=== PATIENT | male | born 1970 | race African-American/Black ===

== ENCOUNTER 2019-01-26 16:57 | Inpatient (IN) | payer OTHER ==
--- NOTE | 2019-01-26 17:13 | ER Document Report ---
ED General - General TRAVEL OUTSIDE OF THE [place] IN LAST 30 DAYS: No <EDEL TODD - Last Filed: 01/26/19 20:08> <ZACKERY BROWN - Last Filed: 01/27/19 15:20> - General Stated Complaint: CHEST PAIN Time Seen by Provider: 01/26/19 17:03 - HPI Notes: Patient is a 48-year-old male with a history of hypertension (not currently on medication x3mos) who presents the emergency department complaining of dyspnea on exertion, shortness of breath, dry cough, chest pain that began 3-4 days ago. Patient states that his symptoms worsen when he lays flat or when he is going upstairs. He has never had anything like this before. He still able to eat and drink without difficulty. He is urinating normally and having normal bowel movements. Denies drug allergies. Patient does admit to smoking cigarettes. No significant cardiopulmonary medical history otherwise. Denies any prolonged immobilization, distance travel, recent surgery/trauma, personal cancer history, hormone use, or previous DVT/PE. Denies any headache, fever, neck pain, URI, sore throat, syncope, abdominal pain, nausea/vomiting/diarrhea, urinary retention, dysuria, hematuria, loss of control of bowel or bladder, numbness/ tingling, saddle anesthesia, muscle paralysis/weakness, or rash. (EDEL TODD) - Related Data Allergies/Adverse Reactions: No Known Allergies Allergy (Unverified 05/29/16 10:26) Past Medical History - Social History Smoking Status: Current Every Day Smoker Family History: Reviewed & Not Pertinent - Past Medical History Cardiac Medical History: Reports: Hx Hypertension - Immunizations Hx Diphtheria, Pertussis, Tetanus Vaccination: No <EDEL TODD - Last Filed: 01/26/19 20:08> Review of Systems - Review of Systems -: Yes All other systems reviewed and negative <EDEL TODD - Last Filed: 01/26/19 20:08> Physical Exam <EDEL TODD - Last Filed: 01/26/19 20:08> - Vital signs Vitals: Resp BP Pulse Ox 14 152/121 H 92 01/26/19 17:09 01/26/19 17:09 01/26/19 17:09 - Notes Notes: PHYSICAL EXAMINATION: GENERAL: Well-appearing, well-nourished and in mild resp distress. HEAD: Atraumatic, normocephalic. EYES: Pupils equal round and reactive to light, extraocular movements intact, sclera anicteric, conjunctiva are normal. ENT: Nares patent and without discharge. oropharynx clear without exudates. No tonsilar hypertrophy or erythema. Moist mucous membranes. NECK: Normal range of motion, supple without lymphadenopathy LUNGS: diminished at bases b/l. HEART: Regular rate and rhythm without murmurs, rubs, gallops. ABDOMEN: Soft, nontender, nondistended abdomen. No guarding, no rebound. No masses appreciated. Normal bowel sounds present. No CVA tenderness bilaterally. Musculoskeletal: FROM to passive/active. Strength 5+/5. Ayaka neg. No asymmetry to LE's. Extremities: No cyanosis, clubbing, or edema b/l. Peripheral pulses 2+. Capillary refill less than 3 seconds. NEUROLOGICAL: Normal speech, normal gait. PSYCH: Normal mood, normal affect. SKIN: Warm, Dry, normal turgor, no rashes or lesions noted. (EDEL TODD) Course - Laboratory Result Diagrams: 01/26/19 17:30 01/26/19 17:30 <EDEL TODD - Last Filed: 01/26/19 20:08> - Laboratory Result Diagrams: 01/27/19 06:48 01/27/19 06:48 - Diagnostic Test Radiology reviewed: Image reviewed, Reports reviewed <ZACKERY BROWN - Last Filed: 01/27/19 15:20> - Re-evaluation Re-evalutation: 01/26/19 17:12 Upon my initial evaluation I noticed the patient to be hypoxic anywhere from 90- 93% on room air, tachypneic in the high 20s, tachycardic around 110, dry cough, and him expressing trouble breathing. Oxygen placed via nasal cannula. CTA will be ordered for further evaluation and the rest of the blood work will be obtained when he returns as I have concern for possible PE. 01/26/19 17:50 Radiology called and stated that his blood must have diluted the contrast. He saw a right pleural effusion with ?consolidation in the RUL, RLL, and LLL. He would like a repeat CTA for further evaluation if his renal function is appropriate. 01/26/19 19:42 Patient is an afebrile, well-hydrated, 48-year-old male who presents the emergency department with acute respiratory failure with bilateral pulm edema and effusions and HTN urgency. Patient has remained tachycardic, tachypneic and intermittently hypoxic on 3 L via nasal cannula. CBC, CMP, BNP, cardiac enzymes otherwise unremarkable. I did review with Dr. Brown who agrees with placing on Bipap and admitting to the hospitalist. VBG is still being obtained otherwise. 01/26/19 20:[address] Vanessa who accepted pt to [facility]. (EDEL TODD) 01/27/19 15:18 Patient was evaluated as requested by [facility]. Patient is a 48-year-old male who is noncompliant with his blood pressure medication who presents with hypertensive urgency, shortness of breath and is found to have pleural effusion and vascular congestion. Patient does smoke cigarettes and sister reveals has used crack cocaine recently. Patient is visibly dyspneic, hypoxic and I recommended to [facility] that the patient should be placed on BiPAP. Patient will be admitted to the [facility] PHYSICAL EXAMINATION: GENERAL: Morbidly obese, moderate respiratory distress HEAD: Atraumatic, normocephalic. EYES: Pupils equal round extraocular movements intact, conjunctiva are normal. ENT: Nares patent NECK: Normal range of motion LUNGS: Diminished breath sounds in the lower lung unger. Patient is visibly dyspneic, hypoxic on 4 L of nasal cannula. Musculoskeletal: Normal range of motion NEUROLOGICAL: Normal speech, normal gait. PSYCH: Normal mood, normal affect. SKIN: Warm, Dry, normal turgor, no rashes or lesions noted. (ZACKERY BROWN) - Vital Signs Vital signs: Temp Pulse Resp BP Pulse Ox 97.7 F 99 32 H 122/81 94 01/27/19 11:29 01/27/19 11:29 01/27/19 11:29 01/27/19 11:29 01/27/19 11:29 - Laboratory Laboratory results interpreted by me: 01/26/19 01/26/19 01/26/19 17:30 17:30 17:30 RBC 5.56 H RDW 14.6 H Chloride 108 H AST 15 L Creatine Kinase 189 H NT-Pro-B Natriuret Pep 321 H Urine Protein Urine Urobilinogen 01/26/19 20:00 RBC RDW Chloride AST Creatine Kinase NT-Pro-B Natriuret Pep Urine Protein 30 H Urine Urobilinogen 2.0 H Discharge - Discharge Admitting Provider: Rasheeda (Hospitalist) Unit Admitted: I[facility] <EDEL TODD - Last Filed: 01/26/19 20:08> <ZACKERY BROWN - Last Filed: 01/27/19 15:20> - Discharge Clinical Impression: Hypertensive urgency Acute respiratory failure Qualifiers: Respiratory failure complication: hypoxia Qualified Code(s): J96.01 - Acute respiratory failure with hypoxia Condition: Stable Disposition: ADMITTED INPATIENT
[2019-01-26] MEDS ORDERED: CLONIDINE HCL 0.1 MG TABLET PO ONE ×2 (17:17→20:00)
[2019-01-26] MEDS ORDERED: LORAZEPAM INJ 2 MG/1 ML VIAL IV ONE ×2 (17:18→19:45)
[2019-01-26 17:43] LABS: ABSOLUTE EOSINOPHILS # (AUTO) 0.1 10^3/uL (0.0-0.6); ABSOLUTE LYMPHOCYTES (AUTO) 2.3 10^3/uL (0.5-4.7); ABSOLUTE MONOCYTES (AUTO) 0.5 10^3/uL (0.1-1.4); ABSOLUTE NEUT (AUTO) 4.8 10^3/uL (1.7-8.2); BASOPHILS % (AUTO) 0.4 % (0-2); EOSINOPHILS % (AUTO) 1.7 % (0-6); HEMATOCRIT 47.3 % (37.9-51.0); HEMOGLOBIN 15.8 g/dL (13.5-17.0); LYMPHOCYTES % (AUTO) 29.7 % (13-45); MEAN CORPUSCULAR HEMOGLOBIN 28.4 pg (27.0-33.4); MEAN CORPUSCULAR HGB CONC 33.3 g/dL (32.0-36.0); MEAN CORPUSCULAR VOLUME 85 fl (80-97); MONOCYTES % (AUTO) 6.2 % (3-13); PLATELET COUNT 228 10^3/uL (150-450); RED BLOOD COUNT 5.56 10^6/uL (4.35-5.55); RED CELL DISTRIBUTION WIDTH 14.6 % (11.5-14.0); TOTAL CELLS COUNTED % (AUTO) 100 %; WHITE BLOOD COUNT 7.8 10^3/uL (4.0-10.5)
[2019-01-26 17:55] LABS: ALANINE AMINOTRANSFERASE 28 U/L (21-72); ALBUMIN 3.9 g/dL (3.5-5.0); ALKALINE PHOSPHATASE 75 U/L (38-126); ANION GAP 7 (5-19); ASPARTATE AMINO TRANSFERASE 15 U/L (17-59); BILIRUBIN,DIRECT 0.2 mg/dL (0.0-0.4); BILIRUBIN,TOTAL 0.3 mg/dL (0.2-1.3); BLOOD UREA NITROGEN 14 mg/dL (7-20); CALCIUM 9.4 mg/dL (8.4-10.2); CARBON DIOXIDE 26 mmol/L (22-30); CHLORIDE 108 mmol/L (98-107); CREATINE KINASE 189 U/L (55-170); GLUCOSE 101 mg/dL (75-110); SODIUM 140.6 mmol/L (137-145); TOTAL PROTEIN 6.8 g/dL (6.3-8.2)
[2019-01-26] MEDS ORDERED: NORMAL SALINE 1000 ML 1,000 ML IV ONE (18:04)
[2019-01-26 18:06] LABS: CREATINE KINASE MB 1.06 ng/mL (<4.55)
[2019-01-26 18:08] LABS: TROPONIN I < 0.012 ng/mL
--- NOTE | 2019-01-26 19:29 | RADIOLOGY REPORT (SQ) ---
EXAM DESCRIPTION: CTA CHEST COMPLETED DATE/TIME: 01/26/2019 7:06 pm REASON FOR STUDY: tachypneic, tachycardic, hypoxic, sob, cp; repeat CTA COMPARISON: None. TECHNIQUE: CT scan of the chest performed using helical scanning technique with dynamic intravenous contrast injection. Images reviewed with lung, soft tissue and bone windows. Reconstructed coronal and sagittal MPR images reviewed. Additional 3 dimensional post-processing performed to develop Maximal Intensity Projection images (PA P) through the pulmonary arteries and thoracic aorta. All images stored on PACS. Please note that the patient was scanned twice, full protocol was performed 01/26/2019 at 1735 hours a nd repeated at 01/26/2019 1858 hours with repeat contrast bolus. All CT scanners at this facility use dose modulation, iterative reconstruction, and/or weight based d osing when appropriate to reduce radiation dose to as low as reasonably achievable (ALARA). [facility]: Dose Right [facility]: CareDose [facility]: Dose Right [facility]: Teradose 4D [facility]: Lingohub CONTRAST TYPE AND DOSE: 75 mL of Omnipaque [address] scan 1735 hours. 90 mL of Omnipaque [address] scan at 1858 hours Contrast bolus optimized for the pulmonary arteries and thoracic aorta on the 2nd scan. RENAL FUNCTION: Creatinine RADIATION DOSE: CT Rad equipment meets quality standard of care and radiation dose reduction techniq ues were employed. CTDIvol: 36.8 - 41.3 mGy. DLP: 1446 mGy-cm.; CT Rad equipment meets quality standa rd of care and radiation dose reduction techniques were employed. CTDIvol: 33.1 - 39.4 mGy. DLP: 1497 mGy-cm. . LIMITATIONS: None. FINDINGS: LUNGS AND PLEURA: There is diffuse bilateral pulmonary edema with ground-glass opacities r ight greater than left. Small right, trace left pleural effusion. No pneumothorax. No worrisome pu lmonary nodules AORTA AND GREAT VESSELS: No aneurysm or thoracic aortic dissection. HEART: No pericardial effusion. No significant coronary artery calcifications. PULMONARY ARTERIES: No emboli visualized in the main pulmonary arteries or the segmental branches. HILAR AND MEDIASTINAL STRUCTURES: No identified masses or abnormal nodes. HARDWARE: None in the chest. UPPER ABDOMEN: 1 cm left midpole renal cortical cyst THYROID AND OTHER SOFT TISSUES: No masses. No adenopathy. BONES: No acute or significant finding. 3D MIPS: Confirm above findings. OTHER: No other significant finding. IMPRESSION: Bilateral pulmonary edema pattern right greater than left. Small right pleural effusion, trace left pleural effusion No CT angio evidence of acute pulmonary emboli or thoracic aortic dissection. No pericardial effusio n. COMMENT: Quality ID # [id number]: Final reports with documentation of one or more dose reduction techniques (e.g., Automated exposure control, adjustment of the mA and/or kV according to patient size, use of iterative reconstruction technique) TECHNICAL DOCUMENTATION: JOB ID: [id number] [employer]- All Rights Reserved Reading location - IP/workstation name: [email or web address]
--- NOTE | 2019-01-26 19:29 | RADIOLOGY REPORT (SQ) ---
EXAM DESCRIPTION: CTA CHEST COMPLETED DATE/TIME: 01/26/2019 7:06 pm REASON FOR STUDY: tachypneic, tachycardic, hypoxic, sob, cp; repeat CTA COMPARISON: None. TECHNIQUE: CT scan of the chest performed using helical scanning technique with dynamic intravenous contrast injection. Images reviewed with lung, soft tissue and bone windows. Reconstructed coronal and sagittal MPR images reviewed. Additional 3 dimensional post-processing performed to develop Maximal Intensity Projection images (DE P) through the pulmonary arteries and thoracic aorta. All images stored on PACS. Please note that the patient was scanned twice, full protocol was performed 01/26/2019 at 1735 hours a nd repeated at 01/26/2019 1858 hours with repeat contrast bolus. All CT scanners at this facility use dose modulation, iterative reconstruction, and/or weight based d osing when appropriate to reduce radiation dose to as low as reasonably achievable (ALARA). [facility]: Dose Right [facility]: CareDose [facility]: Dose Right [facility]: Teradose 4D [facility]: [email or web address] CONTRAST TYPE AND DOSE: 75 mL of Omnipaque [address] scan 1735 hours. 90 mL of Omnipaque [address] scan at 1858 hours Contrast bolus optimized for the pulmonary arteries and thoracic aorta on the 2nd scan. RENAL FUNCTION: Creatinine RADIATION DOSE: CT Rad equipment meets quality standard of care and radiation dose reduction techniq ues were employed. CTDIvol: 36.8 - 41.3 mGy. DLP: 1446 mGy-cm.; CT Rad equipment meets quality standa rd of care and radiation dose reduction techniques were employed. CTDIvol: 33.1 - 39.4 mGy. DLP: 1497 mGy-cm. . LIMITATIONS: None. FINDINGS: LUNGS AND PLEURA: There is diffuse bilateral pulmonary edema with ground-glass opacities r ight greater than left. Small right, trace left pleural effusion. No pneumothorax. No worrisome pu lmonary nodules AORTA AND GREAT VESSELS: No aneurysm or thoracic aortic dissection. HEART: No pericardial effusion. No significant coronary artery calcifications. PULMONARY ARTERIES: No emboli visualized in the main pulmonary arteries or the segmental branches. HILAR AND MEDIASTINAL STRUCTURES: No identified masses or abnormal nodes. HARDWARE: None in the chest. UPPER ABDOMEN: 1 cm left midpole renal cortical cyst THYROID AND OTHER SOFT TISSUES: No masses. No adenopathy. BONES: No acute or significant finding. 3D MIPS: Confirm above findings. OTHER: No other significant finding. IMPRESSION: Bilateral pulmonary edema pattern right greater than left. Small right pleural effusion, trace left pleural effusion No CT angio evidence of acute pulmonary emboli or thoracic aortic dissection. No pericardial effusio n. COMMENT: Quality ID # [id number]: Final reports with documentation of one or more dose reduction techniques (e.g., Automated exposure control, adjustment of the mA and/or kV according to patient size, use of iterative reconstruction technique) TECHNICAL DOCUMENTATION: JOB ID: [id number] [employer]- All Rights Reserved Reading location - IP/workstation name: [email or web address]
[2019-01-26] MEDS ORDERED: NITROGLYCERIN 5 MG (0.2 MG/HR) PATCH.TD24 TD ONE (19:35)
[2019-01-26] MEDS ORDERED: MORPHINE SULFATE 10 MG/ML INJ IV ONE ×2 (20:07→20:08)
[2019-01-26 20:13] LABS: VENOUS BLOOD BASE EXCESS -0.2 mmol/L; VENOUS BLOOD HCO3 24.6 mmol/L (20-32); VENOUS BLOOD PCO2 40.6 mmHg (35-63); VENOUS BLOOD PH 7.4 (7.30-7.42)
[2019-01-26 20:25] LABS: APPEARANCE,URINE CLEAR; BILIRUBIN,URINE NEGATIVE (NEGATIVE); COLOR,URINE YELLOW; GLUCOSE, URINE NEGATIVE (NEGATIVE); KETONES,URINE NEGATIVE (NEGATIVE); LEUKOCYTE ESTERASE,URINE NEGATIVE (NEGATIVE); NITRITE,URINE NEGATIVE (NEGATIVE); PROTEIN,URINE 30 mg/dL (NEGATIVE); URINE SPECIFIC GRAVITY 1.036
[2019-01-26 20:40] LABS: URINE AMPHETAMINES SCREEN NEGATIVE; URINE BARBITURATES SCREEN NEGATIVE; URINE BENZODIAZEPINES SCREEN NEGATIVE; URINE COCAINE SCREEN UNCONFIRMED POSITIVE; URINE MARIJUANA (THC) SCREEN NEGATIVE; URINE METHADONE SCREEN NEGATIVE; URINE PHENCYCLIDINE SCREEN NEGATIVE
--- NOTE | 2019-01-26 20:51 | EKG REPORT ---
SEVERITY:- ABNORMAL ECG - SINUS TACHYCARDIA PROBABLE LEFT ATRIAL ABNORMALITY LEFT VENTRICULAR HYPERTROPHY CONSIDER ANTERIOR INFARCT : Confirmed by: Janae Fontana MD 26-Jan-2019 20:50:37
[2019-01-26] MEDS ORDERED: ONDANSETRON HCL INJ/PF 4 MG/2 ML SDV IV PRN (21:09)
[2019-01-26] MEDS ORDERED: ONDANSETRON 4 MG TAB.RAPDIS PO PRN (21:09)
[2019-01-26] MEDS ORDERED: MAG HYDROX/AL HYDROX/SIMETH SUSP 30 ML UDCUP PO PRN (21:09)
[2019-01-26] MEDS ORDERED: MAGNESIUM HYDROXIDE SUSP 30 ML UDCUP PO PRN (21:09)
[2019-01-26] MEDS ORDERED: ACETAMINOPHEN 325 MG TABLET PO PRN (21:16)
[2019-01-26] MEDS ORDERED: NICOTINE 21 MG/24 HR PATCH.TD24 TD PRN (21:16)
[2019-01-26] MEDS ORDERED: MORPHINE SULFATE 10 MG/ML INJ IV PRN ×5 (21:16→21:43)
[2019-01-26] MEDS ORDERED: ALBUTEROL SULFATE 0.083% NEB 2.5 MG/3 ML AMPUL NEB PRN (21:16)
[2019-01-26] MEDS ORDERED: NITROGLYCERIN 2% OINTMENT 1 GM PACKET TP PRN (21:21)
[2019-01-26] MEDS: HEPARIN SOD (PORCINE) 5,000 UNIT/ML 1 ML SYRINGE SUBCUT SCH (23:10)
[2019-01-26] MEDS: METOPROLOL SUCCINATE 50 MG TAB.SR.24H PO SCH (23:11)
[2019-01-26] MEDS: FAMOTIDINE 20 MG TABLET PO SCH (23:12)
[2019-01-27 00:33] LABS: TROPONIN I < 0.012 ng/mL
--- NOTE | 2019-01-27 03:37 | PDOC H&P ---
History of Present Illness Admission Date/PCP: 01/26/19 20:17 Patient complains of: Dyspnea History of Present Illness: YAW KIM is a 48 year old male who presented to the emergency room with a 4-day history of progressively worsening dyspnea. He admits that over the 4 days prior to his admission he experienced gradually worsening dyspnea both on exertion and at rest. His dyspnea has become severe and has caused him to present to the emergency room. His dyspnea has been accompanied by gradually worsening associated symptoms of an intermittent nonproductive cough, orthopnea and mild to moderate generalized chest pain/discomfort. He denies prior similar episodes and has not identified any aggravating or ameliorating factors for his dyspnea. He admits to smoking cigarettes and has a history of hypertension but has not taken medications for the last 3 months. In the emergency room he was found to be significantly hypoxic requiring supplemental oxygen via nasal cannula. Additionally he was noted to have significant hypertension and his ch est x-ray revealed acute pulmonary edema with congestive heart failure. With these findings the patient was admitted to the [facility] for further evaluation and treatment. Past Medical History Cardiac Medical History: Reports: Hypertension Denies: Atrial Fibrillation, Congestive Heart Failure, Coronary Artery Disease, DVT, Myocardial Infarction, Pulmonary Embolism Pulmonary Medical History: Denies: Asthma, Chronic Obstructive Pulmonary Disease (COPD) EENT Medical History: Denies: Cataracts Neurological Medical History: Denies: Hemorrhagic CVA, Ischemic CVA, Seizures Endocrine Medical History: Reports: Obesity Denies: Diabetes Mellitus Type 1, Diabetes Mellitus Type 2, Hyperthyroidism, Hypothyroidism Renal/ Medical History: Denies: Chronic Kidney Disease, Nephrolithiasis Malignancy Medical History: Reports: None GI Medical History: Denies: Cirrhosis, Hepatitis Musculoskeltal Medical History: Denies: Arthritis, Gout Skin Medical History: Denies: Eczema, Psoriasis Psychiatric Medical History: Reports: Tobacco Dependency Denies: Alcohol Dependency, Substance Abuse Traumatic Medical History: Reports: None Hematology: Denies: Anemia, Bleeding Tendencies Infectious Medical History: Reports: None Social History Information Source: Patient Lives with: Parents - Mother Smoking Status: Current Every Day Smoker Frequency of Alcohol Use: None Hx Recreational Drug Use: Yes Drugs: Cocaine - Occasional usage, none recent, Marijuana - Rare usage Hx Prescription Drug Abuse: No - Advance Directive Resuscitation Status: Full Code Surrogate healthcare decision maker:: Mother Family History Family History: CAD, DM, Hypertension, Malignancy Parental Family History Reviewed: Yes Children Family History Reviewed: No Sibling(s) Family History Reviewed.: Yes Medication/Allergy Home Medications: Clonidine HCl [Catapres 0.3 mg Tablet] 0.3 mg PO TID 30 Days tablet 01/15/15 Metoprolol Tartrate [Lopressor 50 mg Tablet] 50 mg PO Q12H #60 tablet 01/15/15 Triamterene/Hydrochlorothiazid [Triamterene-Hctz 37.5-25 mg Tb] 1 each PO DAILY #60 tablet 01/15/15 Ibuprofen [Motrin 600 Mg Tablet] 600 mg PO TID #15 tablet 05/29/16 Oxycodone HCl/Acetaminophen [Percocet 5-325 mg Tablet] 1 - 2 tab PO Q4H PRN #25 tablet 05/29/16 Amlodipine Besylate [Norvasc 5 mg Tablet] 5 mg PO DAILY #30 tablet 09/14/16 Clonidine HCl [Catapres 0.3 mg Tablet] 0.3 mg PO TID #90 tablet 09/14/16 Metoprolol Tartrate [Lopressor 50 mg Tablet] 50 mg PO Q12H #60 tablet 09/14/16 Triamterene/Hydrochlorothiazid [Triamterene-Hctz 37.5-25 mg Tb] 1 each PO DAILY #30 tablet 09/14/16 Allergies/Adverse Reactions: No Known Allergies Allergy (Unverified 05/29/16 10:26) Review of Systems Constitutional: ABSENT: chills, fever(s) Eyes: ABSENT: visual disturbances, other - Eye pain Ears: ABSENT: hearing changes, other - Ear pain Nose, Mouth, and Throat: ABSENT: mouth pain, sore throat Cardiovascular: PRESENT: as per HPI, chest pain, dyspnea on exertion, orth ropnea. ABSENT: edema, palpitations Respiratory: PRESENT: cough, dyspnea. ABSENT: sputum Gastrointestinal: ABSENT: abdominal pain, constipation, diarrhea, nausea, vomiting Genitourinary: ABSENT: dysuria, hematuria Musculoskeletal: ABSENT: back pain, joint swelling, muscle weakness Integumentary: ABSENT: pruritus, rash Neurological: ABSENT: confusion, convulsions, focal weakness, memory loss, syncope Psychiatric: ABSENT: anxiety, depression Endocrine: ABSENT: cold intolerance, heat intolerance Hematologic/Lymphatic: ABSENT: easy bleeding, easy bruising Physical Exam Vital Signs: Temp Pulse Resp BP Pulse Ox 25 H 163/133 H 92 01/26/19 18:26 01/26/19 18:26 01/26/19 20:14 Intake & Output 01/24/19 01/25/19 01/26/19 23:59 23:59 23:59 Weight 129.274 kg General appearance: PRESENT: cooperative, mild distress - Secondary to mild dyspnea, morbidly obese Head exam: PRESENT: atraumatic, normocephalic Eye exam: ABSENT: conjunctival injection, nystagmus, scleral icterus Ear exam: PRESENT: normal external ear exam. ABSENT: bleeding, drainage Mouth exam: PRESENT: dry mucosa, neck supple Neck exam: PRESENT: JVD - Bilateral 45 degrees elevation. ABSENT: thyromegaly, tracheal deviation Respiratory exam: PRESENT: accessory muscle use - Mild, decreased breath sounds - Decreased breath sounds at bilateral bases with dullness on percussion, rales - Bilateral involving the lower one third of the chest, symmetrical, tachypnea Cardiovascular exam: PRESENT: RRR, tachycardia. ABSENT: clicks, gallop, rubs Pulses: PRESENT: normal radial pulses, normal dorsalis pedis pul Vascular exam: PRESENT: normal capillary refill. ABSENT: pallor GI/Abdominal exam: PRESENT: normal bowel sounds, soft. ABSENT: tenderness Rectal exam: PRESENT: deferred Extremities exam: PRESENT: pedal edema. ABSENT: joint swelling Musculoskeletal exam: ABSENT: deformity, dislocation Neurological exam: PRESENT: alert, oriented to person, oriented to place, oriented to time, oriented to situation, CN II-XII grossly intact. ABSENT: motor sensory deficit Psychiatric exam: PRESENT: appropriate affect, normal mood Skin exam: PRESENT: dry, intact, warm. ABSENT: jaundice, rash, urticaria Results Laboratory Results: 01/26/19 17:30 01/26/19 17:30 01/26/19 01/26/19 01/26/19 17:30 17:30 17:30 WBC 7.8 RBC 5.56 H Hgb 15.8 Hct 47.3 MCV 85 MCH 28.4 MCHC 33.3 RDW 14.6 H Plt Count 228 Seg Neutrophils % 62.0 Lymphocytes % 29.7 Monocytes % 6.2 Eosinophils % 1.7 Basophils % 0.4 Absolute Neutrophils 4.8 Absolute Lymphocytes 2.3 Absolute Monocytes 0.5 Absolute Eosinophils 0.1 Absolute Basophils 0.0 VBG pH VBG pCO2 VBG HCO3 VBG Base Excess Sodium 140.6 Potassium 4.0 Chloride 108 H Carbon Dioxide 26 Anion Gap 7 BUN 14 Creatinine 1.11 Est GFR ( Amer) > 60 Est GFR (Non-Af Amer) > 60 Glucose 101 Lactic Acid 1.4 Calcium 9.4 Total Bilirubin 0.3 AST 15 L ALT 28 Alkaline Phosphatase 75 Total Protein 6.8 Albumin 3.9 Urine Color Urine Appearance Urine pH Ur Specific [place] Urine Protein Urine Glucose (UA) Urine Ketones Urine Blood Urine Nitrite Ur Leukocyte Esterase Urine WBC (Auto) Urine RBC (Auto) 01/26/19 01/26/19 20:00 20:00 WBC RBC Hgb Hct MCV MCH MCHC RDW Plt Count Seg Neutrophils % Lymphocytes % Monocytes % Eosinophils % Basophils % Absolute Neutrophils Absolute Lymphocytes Absolute Monocytes Absolute Eosinophils Absolute Basophils VBG pH 7.40 VBG pCO2 40.6 VBG HCO3 24.6 VBG Base Excess -0.2 Sodium Potassium Chloride Carbon Dioxide Anion Gap BUN Creatinine Est GFR ( Amer) Est GFR (Non-Af Amer) Glucose Lactic Acid Calcium Total Bilirubin AST ALT Alkaline Phosphatase Total Protein Albumin Urine Color YELLOW Urine Appearance CLEAR Urine pH 7.0 Ur Specific [place] 1.036 Urine Protein 30 H Urine Glucose (UA) NEGATIVE Urine Ketones NEGATIVE Urine Blood NEGATIVE Urine Nitrite NEGATIVE Ur Leukocyte Esterase NEGATIVE Urine WBC (Auto) 1 Urine RBC (Auto) 1 01/26/19 01/26/19 01/26/19 17:30 17:30 17:30 Creatine Kinase 189 H CK-MB (CK-2) 1.06 Troponin I < 0.012 NT-Pro-B Natriuret Pep 321 H Impressions: Chest/Abdomen CTA 01/26/19 18:01 IMPRESSION: Bilateral pulmonary edema pattern right greater than left. Small right pleural effusion, trace left pleural effusion No CT angio evidence of acute pulmonary emboli or thoracic aortic dissection. No pericardial effusion. Assessment and Plan - Diagnosis (1) Acute pulmonary edema with congestive heart failure Is this a current diagnosis for this admission?: Yes Plan: Patient will be admitted to [facility] and will be continued on appropriate medications for control of heart failure and hypertension. He will additionally be given morphine sulfate 2 mg IV q. one hour as needed to aid with his pulmonary edema and respiratory distress and will also use nitroglycerin topical as needed for hypertension and control of chest pain. Additionally for chest pain he will have morphine 2-4 mg IV every 2 hours on a sliding scale basis. (2) Hypertensive urgency Is this a current diagnosis for this admission?: Yes Plan: Patient's hypertensive urgency is treated with nitroglycerin topical and an appropriate antihypertensive/congestive heart failure control regiment will be initiated immediately. (3) Acute respiratory failure with hypoxia Is this a current diagnosis for this admission?: Yes Plan: Patient's respiratory failure will be treated with supplemental oxygen per nasal cannula with additional therapy as required. (4) Morbid obesity with BMI of 40.0-44.9, adult Is this a current diagnosis for this admission?: Yes Plan: Patient will be educated in diet management and lifestyle choices which may improve his overall health and longevity. (5) Tobacco use disorder, severe, dependence Is this a current diagnosis for this admission?: Yes Plan: Smoking cessation is advised and brief smoking cessation counseling is provided. A nicotine replacement patch will be available for the patient's use as desired. - Time Time Spent with patient: 25-34 minutes Smoking Cessation Education: 3 to 10 minutes Medications reviewed and adjusted accordingly: Yes Anticipated discharge: Home - Inpatient Certification Based on my medical assessment, after consideration of the patient's comorbidities, presenting symptoms, or acuity I expect that the services needed warrant INPATIENT care.: Yes I certify that my determination is in accordance with my understanding of Medicare's requirements for reasonable and necessary INPATIENT services [42 CFR 412.3e].: Yes Medical Necessity: Need Close Monitoring Due to Risk of Patient Decompensation, Need For Continuous Telemetry Monitoring, Risk of Complication if Not Cared For in Hospital
[2019-01-27] MEDS: HEPARIN SOD (PORCINE) 5,000 UNIT/ML 1 ML SYRINGE SUBCUT SCH ×3 (05:21→21:06)
[2019-01-27 07:14] LABS: VENOUS BLOOD BASE EXCESS -0.2 mmol/L; VENOUS BLOOD HCO3 25.2 mmol/L (20-32); VENOUS BLOOD PH 7.38 (7.30-7.42)
[2019-01-27 07:19] LABS: ABSOLUTE EOSINOPHILS # (AUTO) 0.2 10^3/uL (0.0-0.6); ABSOLUTE LYMPHOCYTES (AUTO) 2.9 10^3/uL (0.5-4.7); ABSOLUTE MONOCYTES (AUTO) 0.6 10^3/uL (0.1-1.4); ABSOLUTE NEUT (AUTO) 4.2 10^3/uL (1.7-8.2); BASOPHILS % (AUTO) 0.3 % (0-2); EOSINOPHILS % (AUTO) 2.4 % (0-6); HEMATOCRIT 40.1 % (37.9-51.0); LYMPHOCYTES % (AUTO) 36.7 % (13-45); MEAN CORPUSCULAR HEMOGLOBIN 28.7 pg (27.0-33.4); MEAN CORPUSCULAR HGB CONC 33.5 g/dL (32.0-36.0); MEAN CORPUSCULAR VOLUME 86 fl (80-97); MONOCYTES % (AUTO) 7.5 % (3-13); PLATELET COUNT 207 10^3/uL (150-450); RED BLOOD COUNT 4.68 10^6/uL (4.35-5.55); RED CELL DISTRIBUTION WIDTH 14.5 % (11.5-14.0); SEGMENTED NEUTROPHILS % (AUTO) 53.1 % (42-78); TOTAL CELLS COUNTED % (AUTO) 100 %; WHITE BLOOD COUNT 7.9 10^3/uL (4.0-10.5)
--- NOTE | 2019-01-27 07:19 | EKG REPORT ---
SEVERITY:- ABNORMAL ECG - SINUS RHYTHM NONSPECIFIC ST-T CHANGES- LATERAL LEADS : Confirmed by: Clay Fuchs MD 27-Jan-2019 07:18:36
[2019-01-27 07:20] LABS: HEMOGLOBIN 13.4 g/dL (13.5-17.0)
[2019-01-27 07:34] LABS: BLOOD UREA NITROGEN 15 mg/dL (7-20); CALCIUM 9.1 mg/dL (8.4-10.2); CHOLESTEROL 119.85 mg/dL (0-200); GLUCOSE 92 mg/dL (75-110); POTASSIUM 3.9 mmol/L (3.6-5.0); TRIGLYCERIDES 96 mg/dL (<150)
[2019-01-27 07:38] LABS: ANION GAP 5 (5-19); CARBON DIOXIDE 25 mmol/L (22-30); CHLORIDE 109 mmol/L (98-107); SODIUM 138.9 mmol/L (137-145)
[2019-01-27 07:44] LABS: CREATINE KINASE MB 0.71 ng/mL (<4.55); DIRECT LDL 66 mg/dL (<100)
[2019-01-27 07:46] LABS: TROPONIN I < 0.012 ng/mL
[2019-01-27 07:53] LABS: FREE T3 4.03 pg/mL (2.77-5.27); FREE T4 (FREE THYROXINE) 0.92 ng/dL (0.78-2.19)
[2019-01-27 08:07] LABS: THYROID STIMULATING HORMONE 3.61 uIU/mL (0.47-4.68)
[2019-01-27] MEDS ORDERED: SPIRONOLACTONE 25 MG TABLET PO SCH (10:00)
[2019-01-27] MEDS ORDERED: LISINOPRIL 10 MG TABLET PO SCH (10:00)
[2019-01-27] MEDS: FAMOTIDINE 20 MG TABLET PO SCH ×2 (11:34→21:06)
[2019-01-27] MEDS: DOCUSATE SODIUM 100 MG CAPSULE PO SCH ×2 (11:34→19:01)
[2019-01-27] MEDS: METOPROLOL SUCCINATE 50 MG TAB.SR.24H PO SCH (11:35)
[2019-01-27 12:59] LABS: CREATINE KINASE MB 0.71 ng/mL (<4.55)
[2019-01-27 13:03] LABS: TROPONIN I < 0.012 ng/mL
--- NOTE | 2019-01-27 14:14 | PDOC PROGRESS REPORT ---
Subjective Progress Note for:: 01/27/19 Subjective:: YAW KIM is a 48 year old male who presented to the emergency room with a 4-day history of progressively worsening dyspnea. He admits that over the 4 days prior to his admission he experienced gradually worsening dyspnea both on exertion and at rest. His dyspnea has become severe and has caused him to present to the emergency room. His dyspnea has been accompanied by gradually worsening associated symptoms of an intermittent nonproductive cough, orthopnea and mild to moderate generalized chest pain/discomfort. He denies prior similar episodes and has not identified any aggravating or ameliorating factors for his dyspnea. He admits to smoking cigarettes and has a history of hypertension but has not taken medications for the last 3 months. In the emergency room he was found to be significantly hypoxic requiring supplemental oxygen via nasal kathy ankush. Additionally he was noted to have significant hypertension and his chest x-ray revealed acute pulmonary edema with congestive heart failure. With these findings the patient was admitted to the [facility] for further evaluation and treatment. 01/27/2019. No acute events overnight. Patient is still complaining of dyspnea on exertion and nonproductive cough. His blood pressure has been controlled. His UDS is positive for cocaine. When mentioned he states that he had done cocaine about 3 days ago and his symptoms started following that. He is a former and male, has remote history of cocaine abuse, CAD, CVA, kidney, cirrhosis, or any cardiomyopathy. Denies any fever, chills, nausea, vomiting, diarrhea, constipation or any urinary symptoms. Reason For Visit: ACUTE HYPERTENSIVE CRISIS, ACUTE PULMONARY EDEMA Physical Exam Vital Signs: Temp Pulse Resp BP Pulse Ox 97.7 F 99 32 H 122/81 94 01/27/19 11:29 01/27/19 11:29 01/27/19 11:29 01/27/19 11:29 01/27/19 11:29 Intake & Output 01/26/19 01/27/19 01/28/19 06:59 06:59 06:59 Intake Total 1250 118 Balance 1250 118 Weight 130.4 kg General appearance: PRESENT: obese Head exam: PRESENT: atraumatic, normocephalic Respiratory exam: PRESENT: clear to auscultation [place]. ABSENT: rales, rhonchi, wheezes Cardiovascular exam: PRESENT: RRR. ABSENT: diastolic murmur, rubs, systolic murmur GI/Abdominal exam: PRESENT: normal bowel sounds, soft. ABSENT: distended, guarding, mass, organolmegaly, rebound, tenderness Extremities exam: PRESENT: full ROM. ABSENT: calf tenderness, clubbing, pedal edema Neurological exam: PRESENT: alert, awake, oriented to person, oriented to place, oriented to time, oriented to situation, CN II-XII grossly intact. ABSENT: motor sensory deficit Results Laboratory Results: 01/27/19 06:48 01/27/19 06:48 01/26/19 01/26/19 01/26/19 17:30 17:30 17:30 WBC 7.8 RBC 5.56 H Hgb 15.8 Hct 47.3 MCV 85 MCH 28.4 MCHC 33.3 RDW 14.6 H Plt Count 228 Seg Neutrophils % 62.0 Lymphocytes % 29.7 Monocytes % 6.2 Eosinophils % 1.7 Basophils % 0.4 Absolute Neutrophils 4.8 Absolute Lymphocytes 2.3 Absolute Monocytes 0.5 Absolute Eosinophils 0.1 Absolute Basophils 0.0 VBG pH VBG pCO2 VBG HCO3 VBG Base Excess Sodium 140.6 Potassium 4.0 Chloride 108 H Carbon Dioxide 26 Anion Gap 7 BUN 14 Creatinine 1.11 Est GFR ( Amer) > 60 Est GFR (Non-Af Amer) > 60 Glucose 101 Lactic Acid 1.4 Calcium 9.4 Magnesium Total Bilirubin 0.3 AST 15 L ALT 28 Alkaline Phosphatase 75 Total Protein 6.8 Albumin 3.9 Triglycerides Cholesterol LDL Cholesterol Direct VLDL Cholesterol HDL Cholesterol TSH Free T4 Free T3 pg/mL Urine Color Urine Appearance Urine pH Ur Specific [place] Urine Protein Urine Glucose (UA) Urine Ketones Urine Blood Urine Nitrite Ur Leukocyte Esterase Urine WBC (Auto) Urine RBC (Auto) 01/26/19 01/26/19 01/27/19 20:00 20:00 06:48 WBC 7.9 RBC 4.68 Hgb 13.4 L D Hct 40.1 MCV 86 MCH 28.7 MCHC 33.5 RDW 14.5 H Plt Count 207 Seg Neutrophils % 53.1 Lymphocytes % 36.7 Monocytes % 7.5 Eosinophils % 2.4 Basophils % 0.3 Absolute Neutrophils 4.2 Absolute Lymphocytes 2.9 Absolute Monocytes 0.6 Absolute Eosinophils 0.2 Absolute Basophils 0.0 VBG pH 7.40 VBG pCO2 40.6 VBG HCO3 24.6 VBG Base Excess -0.2 Sodium Potassium Chloride Carbon Dioxide Anion Gap BUN Creatinine Est GFR ( Amer) Est GFR (Non-Af Amer) Glucose Lactic Acid Calcium Magnesium Total Bilirubin AST ALT Alkaline Phosphatase Total Protein Albumin Triglycerides Cholesterol LDL Cholesterol Direct VLDL Cholesterol HDL Cholesterol TSH Free T4 Free T3 pg/mL Urine Color YELLOW Urine Appearance CLEAR Urine pH 7.0 Ur Specific [place] 1.036 Urine Protein 30 H Urine Glucose (UA) NEGATIVE Urine Ketones NEGATIVE Urine Blood NEGATIVE Urine Nitrite NEGATIVE Ur Leukocyte Esterase NEGATIVE Urine WBC (Auto) 1 Urine RBC (Auto) 1 01/27/19 01/27/19 01/27/19 06:48 06:48 06:48 WBC RBC Hgb Hct MCV MCH MCHC RDW Plt Count Seg Neutrophils % Lymphocytes % Monocytes % Eosinophils % Basophils % Absolute Neutrophils Absolute Lymphocytes Absolute Monocytes Absolute Eosinophils Absolute Basophils VBG pH 7.38 VBG pCO2 44.0 VBG HCO3 25.2 VBG Base Excess -0.2 Sodium 138.9 Potassium 3.9 Chloride 109 H Carbon Dioxide 25 Anion Gap 5 BUN 15 Creatinine 1.11 Est GFR ( Amer) > 60 Est GFR (Non-Af Amer) > 60 Glucose 92 Lactic Acid Calcium 9.1 Magnesium 2.0 Total Bilirubin AST ALT Alkaline Phosphatase Total Protein Albumin Triglycerides 96 Cholesterol 119.85 LDL Cholesterol Direct 66 VLDL Cholesterol 19.0 HDL Cholesterol 42 TSH 3.61 Free T4 0.92 Free T3 pg/mL 4.03 Urine Color Urine Appearance Urine pH Ur Specific [place] Urine Protein Urine Glucose (UA) Urine Ketones Urine Blood Urine Nitrite Ur Leukocyte Esterase Urine WBC (Auto) Urine RBC (Auto) 01/26/19 01/26/19 01/26/19 17:30 17:30 17:30 Creatine Kinase 189 H CK-MB (CK-2) 1.06 Troponin I < 0.012 NT-Pro-B Natriuret Pep 321 H 01/26/19 01/26/19 01/27/19 23:50 23:50 06:48 Creatine Kinase 151 147 CK-MB (CK-2) 0.80 Troponin I < 0.012 NT-Pro-B Natriuret Pep 01/27/19 01/27/19 01/27/19 06:48 12:05 12:05 Creatine Kinase 153 CK-MB (CK-2) 0.71 0.71 Troponin I < 0.012 < 0.012 NT-Pro-B Natriuret Pep Impressions: Chest/Abdomen CTA 01/26/19 18:01 IMPRESSION: Bilateral pulmonary edema pattern right greater than left. Small right pleural effusion, trace left pleural effusion No CT angio evidence of acute pulmonary emboli or thoracic aortic dissection. No pericardial effusion. Assessment and Plan - Diagnosis (1) Acute pulmonary edema with congestive heart failure Is this a current diagnosis for this admission?: Yes Plan: Acute pulmonary edema in the setting of acute CHF casued by cocaine abuse. UDS positive for cocaine. Patient admits to abusing cocaine 3 days prior to admission. Denies any history of CAD, CHF, CKD, cirrhosis or any cardiomyopathy. EKG on admission nonspecific ST-T wave changes. CTA negative for PE. Positive for pulmonary edema. Troponins less than 0.0124. BNP 321. TSH, T4/T3 within normal limits. Lipid panel within normal limits. Avoid beta-blockers. Continue lisinopril, adjust meds as needed. Cardiac diet. Monitor volume status. Ending 2D echo results. (2) Cocaine abuse Is this a current diagnosis for this admission?: Yes Plan: Monitor for withdrawal. Advised on quitting. Avoid beta-blockers. (3) Acute respiratory failure with hypoxia Is this a current diagnosis for this admission?: Yes Plan: Due to problem #1. SPO2 on admission 88-89 on room air. ABG 3 L nasal cannula within normal limits. Supple mental oxygen, DuoNeb's, BiPAP as needed. (4) Hypertensive urgency Is this a current diagnosis for this admission?: Yes Plan: Due to #1. Avoid beta-blockers. Currently normotensive. DC metoprolol. Increase lisinopril to 40 mg p.o. daily. Adjust meds as needed. Consider chlorthalidone/HCTZ. (5) Morbid obesity with BMI of 40.0-44.9, adult Is this a current diagnosis for this admission?: Yes Plan: Diet and lifestyle modification. (6) Tobacco use disorder, severe, dependence Is this a current diagnosis for this admission?: Yes Plan: Counseled on quitting. Nicotine replacement patch.
[2019-01-27] MEDS ORDERED: ONDANSETRON 4 MG TAB.RAPDIS PO PRN (14:30)
[2019-01-27] MEDS ORDERED: ONDANSETRON HCL INJ/PF 4 MG/2 ML SDV IV PRN (14:30)
[2019-01-27] MEDS: GUAIFENESIN SYRP 200 MG/10 ML UDC PO PRN (15:10)
--- NOTE | 2019-01-27 19:12 | XCELERA REPORT ---
[address] [address] Transthoracic Echocardiogram Report Name: YAW KIM Age: 48 yrs Gender: Male : 1970 Patient Status: Inpatient Patient Location: [address] [place], [place] [address] Study Date: 01/27/2019 10:53 AM Height: 68 in Weight: 285 lb BSA: 2.4 m2 Procedure: A two-dimensional transthoracic echocardiogram with color flow and Doppler was performed. Study Quality: Poor. The study was technically difficult with many images being suboptimal in quality. Reason For Study: acute chf History: CHF. Ordering Physician: HARLEEN MEDINA Performed By: Christine Lindsay Interpretation Summary The left ventricle is normal in size. LV EF is Probably 55% Left ventricular systolic function is low normal. Doppler measurements suggest normal left ventricular diastolic function The right ventricle is grossly normal size. The right ventricle is not well visualized secondary to technical limitations The right atrium is normal. The left atrium is mildly dilated. Cannot assess for ASD , VSD , or PFO. There is no evidence of mitral valve prolapse. There is no vegetation seen on the mitral valve. There is no mitral valve stenosis. There is a moderate to severe amount of mitral regurgitation There is no aortic valvular vegetation. There is no aortic valve stenosis There is no LVOT obstruction. There is a trace amount of aortic regurgitation There is mild pulmonary hypertension by echo RVSP is 39 to 44 mm of Hg , with RA mean of 5 to 10. There is no pulmonic valvular stenosis. There is a trace amount of pulmonic regurgitation The aortic root is not well visualized. The inferior vena cava appeared normal and decreased > 50% with respiration (RAP 5-10 mmHg) There is no pericardial effusion. MMode/2D Measurements & Calculations RVDd: 3.7 cm LVIDd: 5.2 cm FS: 18.6 % Ao root diam: 3.4 cm IVSd: 0.86 cm LVIDs: 4.2 cm EDV(Teich): 129.6 ml Ao root area: 9.0 cm2 LVPWd: 1.2 cm ESV(Teich): 80.0 ml EF(Teich): 38.2 % Doppler Measurements & Calculations MV E max shon: MV dec slope: Ao V2 max: AI max shon: 121.4 cm/sec 1025 cm/sec2 95.1 cm/sec 247.9 cm/sec MV A max shon: MV dec time: Ao max P.6 mmHgAI max P.6 mmHg 45.1 cm/sec 0.12 sec AI dec slope: MV E/A: 2.7 143.9 cm/sec2 AI P1/2t: 504.5 msec LV V1 max PG: PA V2 max: PI end-d shon: TR max shon: 2.4 mmHg 69.4 cm/sec 193.7 cm/sec 290.4 cm/sec LV V1 max: PA max P.9 mmHg TR max P.8 mmHg 76.9 cm/sec LV dP/dt: 878.9 mmHg/s Left Ventricle The left ventricle is normal in size. LV EF is Probably 55%. Left ventricular systolic function is low normal. Doppler measurements suggest normal left ventricular diastolic function. The left ventricular wall motion is normal. There is no thrombus. Right Ventricle The right ventricle is grossly normal size. The right ventricle is not well visualized secondary to technical limitations. Atria The right atrium is normal. The left atrium is mildly dilated. Cannot assess for ASD , VSD , or PFO. Mitral Valve There is no evidence of mitral valve prolapse. There is no vegetation seen on the mitral valve. There is no mitral valve stenosis. There is a moderate to severe amount of mitral regurgitation. Aortic Valve There is no aortic valvular vegetation. There is no aortic valve stenosis. There is no LVOT obstruction. There is a trace amount of aortic regurgitation. Tricuspid Valve There is no tricuspid stenosis. There is a mild amount of tricuspid regurgitation. There is mild pulmonary hypertension by echo. RVSP is 39 to 44 mm of Hg , with RA mean of 5 to 10. Pulmonic Valve There is no pulmonic valvular stenosis. There is a trace amount of pulmonic regurgitation. Great Vessels The aortic root is not well visualized. The inferior vena cava appeared normal and decreased > 50% with respiration (RAP 5-10 mmHg). Effusions There is no pericardial effusion. : HARLEEN MEDINA > Janae Fontana
[2019-01-27] MEDS: ZOLPIDEM TARTRATE 5 MG TABLET PO PRN (21:06)
[2019-01-27] MEDS: MORPHINE SULFATE 10 MG/ML INJ IV PRN ×2 (21:56→23:23)
[2019-01-27 23:08] LABS: ARTERIAL BLOOD BASE EXCESS -1.4 mmol/L; ARTERIAL BLOOD FIO2 45%; ARTERIAL BLOOD H2CO3 1.35 mmol/L (1.05-1.35); ARTERIAL BLOOD HCO3 24.5 mmol/L (20-24); ARTERIAL BLOOD PH 7.35 (7.35-7.45); ARTERIAL BLOOD PO2 96.2 mmHg (80-100); ARTERIAL BLOOD TOTAL CO2 25.8 mmol/L (23-27)
[2019-01-28] MEDS: GUAIFENESIN SYRP 200 MG/10 ML UDC PO PRN ×2 (00:17→10:40)
[2019-01-28] MEDS ORDERED: FUROSEMIDE INJ/PF 40 MG/4 ML SDV ONE (01:40)
[2019-01-28] MEDS ORDERED: METOPROLOL TARTRATE PF/INJ 5 MG/5 ML SDV IV ONE (01:41)
[2019-01-28] MEDS ORDERED: MORPHINE SULFATE 10 MG/ML INJ IV PRN ×2 (02:00→02:34)
[2019-01-28] MEDS ORDERED: FUROSEMIDE INJ/PF 40 MG/4 ML SDV IV ONE (02:00)
[2019-01-28] MEDS: METOPROLOL TARTRATE PF/INJ 5 MG/5 ML SDV IV PRN ×3 (02:06→02:24)
[2019-01-28] MEDS ORDERED: METOPROLOL SUCCINATE 50 MG TAB.SR.24H PO ONE (03:00)
[2019-01-28 05:07] LABS: HEMATOCRIT 42.7 % (37.9-51.0); HEMOGLOBIN 14.4 g/dL (13.5-17.0); MEAN CORPUSCULAR HEMOGLOBIN 28.5 pg (27.0-33.4); MEAN CORPUSCULAR HGB CONC 33.7 g/dL (32.0-36.0); MEAN CORPUSCULAR VOLUME 85 fl (80-97); PLATELET COUNT 195 10^3/uL (150-450); RED BLOOD COUNT 5.05 10^6/uL (4.35-5.55); RED CELL DISTRIBUTION WIDTH 14.4 % (11.5-14.0); WHITE BLOOD COUNT 10.8 10^3/uL (4.0-10.5)
[2019-01-28 05:35] LABS: ABSOLUTE LYMPHOCYTES# (MANUAL) 1.3 10^3/uL (0.5-4.7); ABSOLUTE MONOCYTES # (MANUAL) 1.1 10^3/uL (0.1-1.4); ABSOLUTE NEUTROPHILS# (MANUAL) 8.3 10^3/uL (1.7-8.2); ANISOCYTOSIS SLIGHT; BASOPHILS % (MANUAL) 0 % (0-2); EOSINOPHILS % (MANUAL) 1 % (0-6); LYMPHOCYTES % (MANUAL) 12 % (13-45); MONOCYTES % (MANUAL) 10 % (3-13); PLATELET COMMENT ADEQUATE; SEGMENTED NEUTROPHILS % (MAN) 77 % (42-78); TOTAL CELLS COUNTED 100; TOXIC VACUOLATION PRESENT
[2019-01-28 05:36] LABS: ANION GAP 6 (5-19); BLOOD UREA NITROGEN 16 mg/dL (7-20); CALCIUM 9.1 mg/dL (8.4-10.2); CARBON DIOXIDE 26 mmol/L (22-30); CHLORIDE 107 mmol/L (98-107); GLUCOSE 100 mg/dL (75-110); POTASSIUM 4.2 mmol/L (3.6-5.0); SODIUM 139.4 mmol/L (137-145)
[2019-01-28] MEDS: HEPARIN SOD (PORCINE) 5,000 UNIT/ML 1 ML SYRINGE SUBCUT SCH ×3 (06:04→21:19)
[2019-01-28] MEDS ORDERED: LISINOPRIL 10 MG TABLET PO SCH ×3 (10:00→22:00)
[2019-01-28] MEDS ORDERED: METOPROLOL SUCCINATE 50 MG TAB.SR.24H PO SCH (10:00)
[2019-01-28] MEDS ORDERED: SPIRONOLACTONE 25 MG TABLET PO SCH (10:00)
[2019-01-28] MEDS ORDERED: LORAZEPAM INJ 2 MG/1 ML VIAL IV PRN (10:30)
[2019-01-28] MEDS ORDERED: METOPROLOL TARTRATE PF/INJ 5 MG/5 ML SDV IV PRN (10:32)
[2019-01-28] MEDS: DOCUSATE SODIUM 100 MG CAPSULE PO SCH ×2 (10:33→17:39)
[2019-01-28] MEDS: FAMOTIDINE 20 MG TABLET PO SCH ×2 (10:36→21:18)
[2019-01-28] MEDS: FUROSEMIDE INJ/PF 40 MG/4 ML SDV IV SCH ×2 (10:37→21:19)
--- NOTE | 2019-01-28 16:50 | PDOC PROGRESS REPORT ---
Subjective Progress Note for:: 01/28/19 Subjective:: YAW KIM is a 48 year old male who presented to the emergency room with a 4-day history of progressively worsening dyspnea. He admits that over the 4 days prior to his admission he experienced gradually worsening dyspnea both on exertion and at rest. His dyspnea has become severe and has caused him to present to the emergency room. His dyspnea has been accompanied by gradually worsening associated symptoms of an intermittent nonproductive cough, orthopnea and mild to moderate generalized chest pain/discomfort. He denies prior similar episodes and has not identified any aggravating or ameliorating factors for his dyspnea. He admits to smoking cigarettes and has a history of hypertension but has not taken medications for the last 3 months. In the emergency room he was found to be significantly hypoxic requiring supplemental oxygen via nasal kathy ankush. Additionally he was noted to have significant hypertension and his chest x-ray revealed acute pulmonary edema with congestive heart failure. With these findings the patient was admitted to the [facility] for further evaluation and treatment. 01/27/2019. No acute events overnight. Patient is still complaining of dyspnea on exertion and nonproductive cough. His blood pressure has been controlled. His UDS is positive for cocaine. When mentioned he states that he had done cocaine about 3 days ago and his symptoms started following that. He is a former and male, has remote history of cocaine abuse, CAD, CVA, kidney, cirrhosis, or any cardiomyopathy. Denies any fever, chills, nausea, vomiting, diarrhea, constipation or any urinary symptoms. 01/28/2019. Overnight patient became tachycardic and tachypneic was started on BiPAP. An ABG was done which was within normal limits. Patient was restarted on metoprolol. On my conversation with patient in the morning. He said he felt like he was having a panic attack. He still complaining of persistent productive cough, but denies any chest pain, fever, chills, nausea, vomiting, diarrhea, constipation or any urinary symptoms. Reason For Visit: ACUTE HYPERTENSIVE CRISIS, ACUTE PULMONARY EDEMA Physical Exam Vital Signs: Temp Pulse Resp BP Pulse Ox 98.6 F 99 16 127/90 H 92 01/28/19 11:45 01/28/19 14:00 01/28/19 11:45 01/28/19 11:45 01/28/19 11:45 Intake & Output 01/27/19 01/28/19 01/29/19 06:59 06:59 06:59 Intake Total 1250 470 118 Output Total 1126 300 Balance 5549 -750 -654 Weight 130.4 kg 128 kg General appearance: PRESENT: no acute distress, obese, well-developed, well- nourished Head exam: PRESENT: atraumatic, normocephalic Respiratory exam: PRESENT: clear to auscultation [place]. ABSENT: rales, rhonchi, wheezes Cardiovascular exam: PRESENT: RRR. ABSENT: diastolic murmur, rubs, systolic murmur Pulses: PRESENT: normal dorsalis pedis pul GI/Abdominal exam: PRESENT: normal bowel sounds, soft. ABSENT: distended, guarding, mass, organolmegaly, rebound, tenderness Extremities exam: PRESENT: full ROM. ABSENT: calf tenderness, clubbing, pedal edema Neurological exam: PRESENT: alert, awake, oriented to person, oriented to place, oriented to time, oriented to situation, CN II-XII grossly intact. ABSENT: motor sensory deficit Psychiatric exam: PRESENT: anxious Results Laboratory Results: 01/28/19 04:44 01/28/19 04:44 01/27/19 01/27/19 01/28/19 22:27 22:55 04:44 WBC 10.8 H RBC 5.05 Hgb 14.4 Hct 42.7 MCV 85 MCH 28.5 MCHC 33.7 RDW 14.4 H Plt Count 195 Seg Neutrophils % Not Reportable Lymphocytes % Not Reportable Monocytes % Not Reportable Eosinophils % Not Reportable Basophils % Not Reportable Absolute Neutrophils Not Reportable Absolute Lymphocytes Not Reportable Absolute Monocytes Not Reportable Absolute Eosinophils Not Reportable Absolute Basophils Not Reportable Carbonic Acid Cancelled 1.35 HCO3/H2CO3 Ratio Cancelled 18:1 ABG pH Cancelled 7.35 ABG pCO2 Cancelled 45.0 ABG pO2 Cancelled 96.2 ABG HCO3 Cancelled 24.5 H ABG O2 Saturation Cancelled 97.0 ABG Base Excess Cancelled -1.4 FiO2 Cancelled 45% Sodium Potassium Chloride Carbon Dioxide Anion Gap BUN Creatinine Est GFR ( Amer) Est GFR (Non-Af Amer) Glucose Calcium Magnesium 01/28/19 04:44 WBC RBC Hgb Hct MCV MCH MCHC RDW Plt Count Seg Neutrophils % Lymphocytes % Monocytes % Eosinophils % Basophils % Absolute Neutrophils Absolute Lymphocytes Absolute Monocytes Absolute Eosinophils Absolute Basophils Carbonic Acid HCO3/H2CO3 Ratio ABG pH ABG pCO2 ABG pO2 ABG HCO3 ABG O2 Saturation ABG Base Excess FiO2 Sodium 139.4 Potassium 4.2 Chloride 107 Carbon Dioxide 26 Anion Gap 6 BUN 16 Creatinine 0.98 Est GFR ( Amer) > 60 Est GFR (Non-Af Amer) > 60 Glucose 100 Calcium 9.1 Magnesium 1.9 01/26/19 01/26/19 01/26/19 17:30 17:30 17:30 Creatine Kinase 189 H CK-MB (CK-2) 1.06 Troponin I < 0.012 NT-Pro-B Natriuret Pep 321 H 01/26/19 01/26/19 01/27/19 23:50 23:50 06:48 Creatine Kinase 151 147 CK-MB (CK-2) 0.80 Troponin I < 0.012 NT-Pro-B Natriuret Pep 01/27/19 01/27/19 01/27/19 06:48 12:05 12:05 Creatine Kinase 153 CK-MB (CK-2) 0.71 0.71 Troponin I < 0.012 < 0.012 NT-Pro-B Natriuret Pep Impressions: Chest/Abdomen CTA 01/26/19 18:01 IMPRESSION: Bilateral pulmonary edema pattern right greater than left. Small right pleural effusion, trace left pleural effusion No CT angio evidence of acute pulmonary emboli or thoracic aortic dissection. No pericardial effusion. Assessment and Plan - Diagnosis (1) Acute pulmonary edema with congestive heart failure Is this a current diagnosis for this admission?: Yes Plan: Acute pulmonary edema in the setting of acute CHF casued by cocaine abuse. UDS positive for cocaine. Patient admits to abusing cocaine 3 days prior to admission. Denies any history of CAD, CHF, CKD, cirrhosis or any cardiomyopathy. EKG on admission nonspecific ST-T wave changes. CTA negative for PE. Positive for pulmonary edema. Troponins less than 0.0124. BNP 321. TSH, T4/T3 within normal limits. Lipid panel within normal limits. Avoid beta-blockers. Continue lisinopril, adjust meds as needed. Cardiac diet. Monitor volume status. 01/28/2019. 2D echo left ventricular ejection fraction probably 55%. (2) Acute systolic heart failure Is this a current diagnosis for this admission?: Yes Plan: Acute systolic heart failure. Most likely due to cocaine abuse. Denies any history of previous CAD. Elevated BNP on admission. Troponins within normal limits. Denies any chest pain. 2D echo positive for ejection fraction about 55%. Cardiac diet, diuretics, DARIUS inhibitor. Avoid beta-blockers if possible as patient is at risk of abusing cocaine again. (3) Cocaine abuse Is this a current diagnosis for this admission?: Yes Plan: Monitor for withdrawal. Advised on quitting. Avoid beta-blockers. (4) Acute respiratory failure with hypoxia Is this a current diagnosis for this admission?: Yes Plan: Due to problem #1. SPO2 on admission 88-89 on room air. ABG 3 L nasal cannula within normal limits. Repeat ABG on 01/25/2019 within normal limits. Supple mental oxygen, DuoNeb's, BiPAP as needed. (5) Hypertensive urgency Is this a current diagnosis for this admission?: Yes Plan: Due to #1. Avoid beta-blockers. Currently normotensive. DC metoprolol. Increase lisinopril to 40 mg p.o. daily. Adjust meds as needed. (6) Morbid obesity with BMI of 40.0-44.9, adult Is this a current diagnosis for this admission?: Yes Plan: Diet and lifestyle modification. (7) Tobacco use disorder, severe, dependence Is this a current diagnosis for this admission?: Yes Plan: Counseled on quitting. Nicotine replacement patch. (8) Anxiety Is this a current diagnosis for this admission?: Yes Plan: PRN benzos.
[2019-01-28] MEDS: AZITHROMYCIN 250 MG TABLET PO SCH (17:39)
[2019-01-28] MEDS: ZOLPIDEM TARTRATE 5 MG TABLET PO PRN (21:18)
[2019-01-29] MEDS: HEPARIN SOD (PORCINE) 5,000 UNIT/ML 1 ML SYRINGE SUBCUT SCH ×2 (05:38→13:04)
[2019-01-29 06:51] LABS: ABSOLUTE BASOPHILS # (AUTO) 0.1 10^3/uL (0.0-0.2); ABSOLUTE EOSINOPHILS # (AUTO) 0.2 10^3/uL (0.0-0.6); ABSOLUTE LYMPHOCYTES (AUTO) 2.4 10^3/uL (0.5-4.7); ABSOLUTE MONOCYTES (AUTO) 0.6 10^3/uL (0.1-1.4); EOSINOPHILS % (AUTO) 2.2 % (0-6); HEMATOCRIT 41.1 % (37.9-51.0); LYMPHOCYTES % (AUTO) 33.1 % (13-45); MEAN CORPUSCULAR HEMOGLOBIN 28.8 pg (27.0-33.4); MEAN CORPUSCULAR VOLUME 85 fl (80-97); MONOCYTES % (AUTO) 7.8 % (3-13); PLATELET COUNT 198 10^3/uL (150-450); RED BLOOD COUNT 4.85 10^6/uL (4.35-5.55); RED CELL DISTRIBUTION WIDTH 14.5 % (11.5-14.0); SEGMENTED NEUTROPHILS % (AUTO) 55.9 % (42-78); TOTAL CELLS COUNTED % (AUTO) 100 %; WHITE BLOOD COUNT 7.1 10^3/uL (4.0-10.5)
[2019-01-29 07:17] LABS: ANION GAP 5 (5-19); BLOOD UREA NITROGEN 17 mg/dL (7-20); CALCIUM 9.1 mg/dL (8.4-10.2); CARBON DIOXIDE 27 mmol/L (22-30); CHLORIDE 106 mmol/L (98-107); GLUCOSE 94 mg/dL (75-110); POTASSIUM 3.6 mmol/L (3.6-5.0); SODIUM 137.8 mmol/L (137-145)
[2019-01-29] MEDS: FUROSEMIDE INJ/PF 40 MG/4 ML SDV IV SCH (09:02)
[2019-01-29] MEDS: DOCUSATE SODIUM 100 MG CAPSULE PO SCH (09:02)
[2019-01-29] MEDS: AZITHROMYCIN 250 MG TABLET PO SCH (09:03)
[2019-01-29] MEDS: FAMOTIDINE 20 MG TABLET PO SCH (09:03)
[2019-01-29] MEDS ORDERED: LISINOPRIL 10 MG TABLET PO SCH ×2 (10:00)
[2019-01-29 12:07] VITALS: BP 116/78
--- NOTE | 2019-02-02 13:59 | PDOC DISCHARGE SUMMARY ---
General - Admit/Disc Date/PCP Admission Date/Primary Care Provider: 01/26/19 20:17 Discharge Date: 01/29/19 - Discharge Diagnosis (1) Acute pulmonary edema with congestive heart failure Is this a current diagnosis for this admission?: Yes (2) Acute systolic heart failure Is this a current diagnosis for this admission?: Yes (3) Cocaine abuse Is this a current diagnosis for this admission?: Yes (4) Acute respiratory failure with hypoxia Is this a current diagnosis for this admission?: Yes (5) Hypertensive urgency Is this a current diagnosis for this admission?: Yes (6) Morbid obesity with BMI of 40.0-44.9, adult Is this a current diagnosis for this admission?: Yes (7) Tobacco use disorder, severe, dependence Is this a current diagnosis for this admission?: Yes (8) Anxiety Is this a current diagnosis for this admission?: Yes - Additional Information Resuscitation Status: Full Code Discharge Diet: Cardiac Discharge Activity: Activity As Tolerated, Balance Activity w/Rest, Weigh Daily Prescriptions: Amlodipine Besylate [Norvasc 2.5 mg Tablet] 2.5 mg PO DAILY 30 Days #30 tablet Aspirin [Ecotrin 81 mg EC Tablet] 81 mg PO DAILY #1 pkg Azithromycin [Zithromax 250 mg Tablet] 250 mg PO DAILY 3 Days #3 tablet Furosemide [Lasix] 20 mg PO DAILY 30 Days #30 tablet Lisinopril [Prinivil 40 mg Tablet] 40 mg PO DAILY 30 Days #30 tablet Home Medications: Amlodipine Besylate [Norvasc 2.5 mg Tablet] 2.5 mg PO DAILY 30 Days #30 tablet 01/29/19 Aspirin [Ecotrin 81 mg EC Tablet] 81 mg PO DAILY #1 pkg 01/29/19 Azithromycin [Zithromax 250 mg Tablet] 250 mg PO DAILY 3 Days #3 tablet 01/29/19 Furosemide [Lasix] 20 mg PO DAILY 30 Days #30 tablet 01/29/19 Lisinopril [Prinivil 40 mg Tablet] 40 mg PO DAILY 30 Days #30 tablet 01/29/19 History of Present Illness History of Present Illness: YAW KIM is a 48 year old male who presented to the emergency room with a 4-day history of progressively worsening dyspnea. He admits that over the 4 days prior to his admission he experienced gradually worsening dyspnea both on exertion and at rest. His dyspnea has become severe and has caused him to present to the emergency room. His dyspnea has been accompanied by gradually worsening associated symptoms of an intermittent nonproductive cough, orthopnea and mild to moderate generalized chest pain/discomfort. He denies prior similar episodes and has not identified any aggravating or ameliorating factors for his dyspnea. He admits to smoking cigarettes and has a history of hypertension but has not taken medications for the last 3 months. In the emergency room he was found to be significantly hypoxic requiring supplemental oxygen via nasal cannula. Additionally he was noted to have significant hypertension and his chest x-ray revealed acute pulmonary edema with congestive heart failure. With these findings the patient was admitted to the [facility] for further evaluation and treatment. . Hospital Course Hospital Course: (1) Acute pulmonary edema with congestive heart failure Acute pulmonary edema in the setting of acute CHF casued by cocaine abuse. UDS positive for cocaine. Patient admits to abusing cocaine 3 days prior to admission. Denied any history of CAD, CHF, CKD, cirrhosis or any cardiomyopathy. EKG on admission nonspecific ST-T wave changes. CTA negative for PE. Positive for pulmonary edema. Troponins less than 0.0124. BNP 321. TSH, T4/T3 within normal limits. Lipid panel within normal limits. Start on cardiac diet. Lisinopril SBP 114-132. 01/28/2019. 2D echo left ventricular ejection fraction probably 55%. Appointment was made for him to see Dr. Chase software development specialist on 02/25/2019. (2) Acute systolic heart failure Acute systolic heart failure. Most likely due to cocaine abuse. Denied any history of previous CAD. Elevated BNP on admission. Troponins within normal limits. Denies any chest pain. 2D echo positive for ejection fraction about 55%. Cardiac diet, diuretics, DARIUS inhibitor. Avoid beta-blockers if possible as patient is at risk of abusing cocaine again. An appointment was made for him to see Dr. Chase software development specialist on 02/25/2019. (3) Cocaine abuse No sign of withdrawal while inpatient. Advised on quitting. Avoid beta- blockers. (4) Acute respiratory failure with hypoxia Due to problem #1. SPO2 92 to 96% room air. Repeat ABG on 01/25/2019 within normal limits. Supple mental oxygen, DuoNeb's, BiPAP as needed. (5) Hypertensive urgency Due to #1. Avoid beta-blockers. SBP [phone] of discharge. Increase lisinopril to 40 mg p.o. daily. An appointment was made for him at the [facility] on 02/05/2019. (6) Morbid obesity with BMI of 40.0-44.9, adult Diet and lifestyle modification. (7) Tobacco use disorder, severe, dependence Counseled on quitting. Nicotine replacement patch. (8) Anxiety PRN benzos. Physical Exam Vital Signs: Temp Pulse Resp BP Pulse Ox 98.0 F 91 20 116/78 96 01/29/19 11:24 01/29/19 11:24 01/29/19 11:24 01/29/19 11:24 01/29/19 11:24 General appearance: PRESENT: no acute distress, morbidly obese, well-developed, well-nourished Head exam: PRESENT: atraumatic, normocephalic Eye exam: PRESENT: conjunctiva pink, EOMI, PERRLA. ABSENT: scleral icterus Ear exam: PRESENT: normal external ear exam Mouth exam: PRESENT: moist, tongue midline Neck exam: ABSENT: carotid bruit, JVD, lymphadenopathy, thyromegaly Respiratory exam: PRESENT: clear to auscultation [place]. ABSENT: rales, rhonchi, wheezes Cardiovascular exam: PRESENT: RRR. ABSENT: diastolic murmur, rubs, systolic murmur Pulses: PRESENT: normal dorsalis pedis pul Vascular exam: PRESENT: normal capillary refill GI/Abdominal exam: PRESENT: normal bowel sounds, soft. ABSENT: distended, guarding, mass, organolmegaly, rebound, tenderness Rectal exam: PRESENT: deferred Extremities exam: PRESENT: full ROM. ABSENT: calf tenderness, clubbing, pedal edema Neurological exam: PRESENT: alert, awake, oriented to person, oriented to place, oriented to time, oriented to situation, CN II-XII grossly intact. ABSENT: motor sensory deficit Psychiatric exam: PRESENT: appropriate affect, normal mood. ABSENT: homicidal ideation, suicidal ideation Skin exam: PRESENT: dry, intact, warm. ABSENT: cyanosis, rash Results Laboratory Results: 01/29/19 06:21 01/29/19 06:21 01/26/19 01/26/19 01/26/19 17:30 17:30 17:30 Creatine Kinase 189 H CK-MB (CK-2) 1.06 Troponin I < 0.012 NT-Pro-B Natriuret Pep 321 H 01/26/19 01/26/19 01/27/19 23:50 23:50 06:48 Creatine Kinase 151 147 CK-MB (CK-2) 0.80 Troponin I < 0.012 NT-Pro-B Natriuret Pep 01/27/19 01/27/19 01/27/19 06:48 12:05 12:05 Creatine Kinase 153 CK-MB (CK-2) 0.71 0.71 Troponin I < 0.012 < 0.012 NT-Pro-B Natriuret Pep Impressions: Chest/Abdomen CTA 01/26/19 18:01 IMPRESSION: Bilateral pulmonary edema pattern right greater than left. Small right pleural effusion, trace left pleural effusion No CT angio evidence of acute pulmonary emboli or thoracic aortic dissection. No pericardial effusion. Qualifiers - * PATIENT BEING DISCHARGED WITH ANY OF THE FOLLOWING DIAGNOSIS: No
== END 2019-01-29 14:00 | disposition home or self-care (01) | DRG 304 ==
LOC: ER 16:57 → EH 20:17 → 3W 01-27 02:11
PROVIDERS: ADMIT Emergency Medicine; ATTEND Emergency Medicine
PROC: 5A09457 Assistance with Respiratory Ventilation, 24-96 Consecutive Hours, Continuous Positive Airway Pressure (ICD-10-PCS; principal; 2019-01-26)
PROC: 3E0F73Z Introduction of Anti-inflammatory into Respiratory Tract, Via Natural or Artificial Opening (ICD-10-PCS; 2019-01-26)
DX: I16.0 Hypertensive urgency (principal); J96.01 Acute respiratory failure with hypoxia; I50.21 Acute systolic (congestive) heart failure; Z68.41 Body mass index [BMI] 40.0-44.9, adult; I13.10 Hypertensive heart and chronic kidney disease without heart failure, with stage 1 through stage 4 chronic kidney disease, or unspecified chronic kidney disease; N18.9 Chronic kidney disease, unspecified; E66.01 Morbid (severe) obesity due to excess calories; F41.9 Anxiety disorder, unspecified; I25.10 Atherosclerotic heart disease of native coronary artery without angina pectoris; F14.10 Cocaine abuse, uncomplicated; F17.210 Nicotine dependence, cigarettes, uncomplicated; Z79.899 Other long term (current) drug therapy; Z91.14 Patient's other noncompliance with medication regimen; Z86.73 Personal history of transient ischemic attack (TIA), and cerebral infarction without residual deficits; Z83.3 Family history of diabetes mellitus; Z80.9 Family history of malignant neoplasm, unspecified; Z82.49 Family history of ischemic heart disease and other diseases of the circulatory system
CPT/HCPCS: 36415; 71275; 80048; 80053; 80061; 80307; 81001; 82550; 82553; 82803; 82962; 83036; 83605; 83735; 83880; 84439; 84443; 84481; 84484; 85025; 93005; 93010; 93306; 94660; 96374; 99285; J1644; J1940; J2060; J2270; J3490; J7030